=== PATIENT | male | born 1995 | race Two or more races ===

== ENCOUNTER 2020-05-13 17:07 | Emergency (ER) | payer SELFPAY ==
--- NOTE | 2020-05-13 17:26 | EDM.PDOC ---
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 Had pain and watering to the eye, with inability to irrigate reduce pain. Presented here for evaluation and work-up of foreign body corneal abrasion. Coworker who is able to speak Italian translates instructions and questions. Onset: Today Duration: Minutes: Location: Reports: Face Quality: Reports: Burning, Stabbing Severity: Moderate Improves with: Reports: None Worsens with: Reports: None Context: Reports: Other Associated Symptoms: Reports: No Other Symptoms - Related Data Allergies Allergy/AdvReac Type Severity Reaction Status Date / Time No Known Allergies Allergy Verified 05/13/20 17:34 Past Medical History - Past Health History Medical/Surgical History: Denies Medical/Surgical History Social & Family History - Family History Family Medical History: Noncontributory ED ROS GENERAL - Review of Systems Review Of Systems: Comprehensive ROS is negative, except as noted in HPI. ED EXAM, GENERAL - Physical Exam Exam: See Below Free Text/Narrative:: Alert oriented and in mild discomfort to the right eye with noted injection. HEENT is negative to discharge deformity other than the erythema injection to the right globe. PERRLA no icterus, left eye is benign, right eye shows erythema injection. Under magnification there is small amounts of debris in the lower lid which is irrigated with saline. There is no gross deformity/laceration noted. Tetracaine is instilled providing good anesthetic property able to cole upper lid to find no debris as well as rinse of any other debris that remained in the lower lid. At this time fluorescein stain was placed and allowed for contact. With Handley lamp able to see small corneal abrasion to the 8-9 o'clock region of the iris. Stain is rinsed free and clear. Gentamicin ophthalmic drop provided to be used 3 times daily. Updated on his tetanus status as he states that it is possibly close to 15 years since last given. Discharged with instructions. ED GENERAL MEDICAL PROCEDURES - Additional/Other Procedure(s) Other (Free Text) Procedure(s): Gentamicin ophthalmic drop provided to be used 3 times daily. Updated on his tetanus status as he states that it is possibly close to 15 years since last given. Discharged with instructions. Course - Vital Signs Last Recorded V/S: Last Vital Signs Temp 36.8 C 05/13/20 17:35 Pulse 76 05/13/20 17:35 Resp 20 05/13/20 17:35 BP 102/68 05/13/20 17:35 Pulse Ox 98 05/13/20 17:35 - Orders/Labs/Meds Orders: Active Orders 24 hr Category Date Time Status Vaccines to be Administered [RC] PER UNIT ROUTINE Care 05/13/20 17:48 Active Gentamicin [Garamycin 0.3% Ophth Soln] Med 05/13/20 21:00 Active 1 ml EYERT TID Medication Orders Gentamicin Sulfate (Garamycin 0.3% Ophth Soln) 1 ml EYERT TID MARIA DOLORES Meds: Medications Generic Name Dose Route Start Last Admin Trade Name Freq PRN Reason Stop Dose Admin Gentamicin Sulfate 1 ml 05/13/20 21:00 Garamycin 0.3% Ophth Soln EYERT TID MARIA DOLORES Discontinued Medications Generic Name Dose Route Start Last Admin Trade Name Freq PRN Reason Stop Dose Admin Diphtheria/Tetanus/Acell Pertussis 0.5 ml 05/13/20 17:48 Adacel IM 05/13/20 17:49 .ONCE ONE Tetracaine HCl 1 ml 05/13/20 17:30 05/13/20 17:42 Tetracaine 0.5% Steri-Unit Cony EYERT 05/13/20 17:31 1 each ASDIRECTED ONE Administration Departure - Departure Time of Disposition: 17:52 Disposition: Home, Self-Care 01 Condition: Good Clinical Impression: Corneal abrasion, right Qualifiers: Encounter type: initial encounter Qualified Code(s): S05.01XA - Injury of conjunctiva and corneal abrasion without foreign body, right eye, initial encounter - Discharge Information *PRESCRIPTION DRUG MONITORING PROGRAM REVIEWED*: Not Applicable *COPY OF PRESCRIPTION DRUG MONITORING REPORT IN PATIENT HEBER: Not Applicable Instructions: Corneal Abrasion, [id number] Referrals: PCP,Unknown [Primary Care Provider] - Forms: ED Department Discharge Additional Instructions: Place 1 drop of the gentamicin ophthalmic solution in your right eye 3 times daily for the next 5 days. If you are still having discomfort or worsening redness on Saturday, 16 May, you need to be seen by an eye doctor. Make sure you keep this clean as possible and use the medication as directed Sepsis Event Note (ED) - Focused Exam Vital Signs: Vital Signs Temp Pulse Resp BP Pulse Ox 05/13/20 17:35 36.8 C 76 20 102/68 98 - Problem List & Annotations (1) Corneal abrasion, right SNOMED Code(s): 12918158125099737 Code(s): S05.01XA - INJ CONJUNCTIVA AND CORNEAL ABRASION W/O FB, RIGHT EYE, INIT Status: Acute Current Visit: Yes Qualifiers: Encounter type: initial encounter Qualified Code(s): S05.01XA - Injury of conjunctiva and corneal abrasion without foreign body, right eye, initial encounter - Problem List Review Problem List Initiated/Reviewed/Updated: Yes - My Orders Last 24 Hours: My Active Orders 05/13/20 17:48 Vaccines to be Administered [RC] PER UNIT ROUTINE 05/13/20 21:00 Gentamicin [Garamycin 0.3% Ophth Soln] 1 ml EYERT TID - Assessment/Plan Last 24 Hours: My Active Orders 05/13/20 17:48 Vaccines to be Administered [RC] PER UNIT ROUTINE 05/13/20 21:00 Gentamicin [Garamycin 0.3% Ophth Soln] 1 ml EYERT TID Plan: Place 1 drop of the gentamicin ophthalmic solution in your right eye 3 times daily for the next 5 days. If you are still having discomfort or worsening redness on Saturday, 16 May, you need to be seen by an eye doctor. Make sure you keep this clean as possible and use the medication as directed.
[2020-05-13 17:36] VITALS: BP 102/68; PULSE 76
[2020-05-13] MEDS: Tetracaine HCl/PF 0.5% 4 ML Bottle EYERT ONE (17:42)
[2020-05-13] MEDS: Diphtheria,Pertussis(Acell),Tetanus Vaccine 0.5 ML SDV IM ONE (18:01)
[2020-05-13] MEDS: Gentamicin 0.3% Ophth Soln 5 ML Bottle EYERT SCH (18:11)
== END 2020-05-13 18:15 | disposition home or self-care (01) ==
LOC: KA.ED 17:07
DX: S05.01XA Injury of conjunctiva and corneal abrasion without foreign body, right eye, initial encounter (principal); Z23 Encounter for immunization; X58.XXXA Exposure to other specified factors, initial encounter
CPT/HCPCS: 90471; 90715; 99283; 99283-25